=== PATIENT | female | born 1995 | race Hispanic/Latino ===

== ENCOUNTER 2023-01-23 12:42 | Inpatient (IN) | payer OTHER ==
[~2023-01-23] VITALS: Ht 154.9 cm; Wt 83.9 kg
[2023-01-23 12:44] VITALS: O2SAT 97
[2023-01-23] MEDS ORDERED: EPHEDRINE SULFATE 50 MG/ML AMPULE IVP PRN (13:30)
[2023-01-23] MEDS ORDERED: NALOXONE HCL 0.4 MG/1 ML ML IV PRN (13:30)
[2023-01-23] MEDS ORDERED: LACTATED RINGERS 500 ML 500 ML IV PRN (13:30)
[2023-01-23 13:38] LABS: APPEARANCE,URINE CLOUDY (CLEAR); BILIRUBIN,URINE NEGATIVE (NEGATIVE); COLOR,URINE YELLOW (YELLOW); GLUCOSE, URINE (UA) NEGATIVE (NEGATIVE); KETONES,URINE 5 mg/dL (NEGATIVE); LEUKOCYTE ESTERASE ,URINE 250 Leu/uL (NEGATIVE); NITRATE,URINE NEGATIVE (NEGATIVE); OCCULT BLOOD,URINE LARGE (NEGATIVE); PROTEIN,URINE 30 mg/dL (NEGATIVE); UROBILINOGEN,URINE 0.2 mg/dL (0.2-1.0)
[2023-01-23 13:43] LABS: ADD UA MICROSCOPIC YES
[2023-01-23 14:10] LABS: HEMATOCRIT 33.2 % (36-48); MEAN CORPUSCULAR HEMOGLOBIN 27.9 pg (27.0-33.0); MEAN CORPUSCULAR HGB CONC 33.1 g/dL (32.0-36.0); MEAN CORPUSCULAR VOLUME 84.3 fL (79-99); RED BLOOD CELL COUNT(AUTO) 3.94 MIL/uL (4.00-5.50); RED CELL DISTRIBUTION WIDTH 14.6 % (11.0-15.5); WHITE BLOOD COUNT (AUTO) 10.9 K/uL (4.8-10.8)
[2023-01-23] MEDS: OXYTOCIN-LR 30 UNITS/500ML 500 ML IV SCH (14:28)
[2023-01-23 14:38] LABS: BACTERIA,URINE FEW /HPF (None Seen); MUCUS,URINE MOD LPF (None Seen); SQUAMOUS EPITHELIAL CELL,UR MOD /HPF (0-2)
[2023-01-23] MEDS: LACTATED RINGERS 1000ML 1,000 ML IV PRN ×2 (15:12→19:37)
[2023-01-23 15:31] LABS: RAPID PLASMA REAGIN NONREACTIVE (NONREACTIVE)
[2023-01-24] MEDS: ROPIVACAINE 0.2% 100ML VIAL 100 ML EP SCH ×2 (01:30→07:22)
[2023-01-24] MEDS: LACTATED RINGERS 1000ML 1,000 ML IV PRN ×2 (01:30→11:11)
[2023-01-24] MEDS: OXYTOCIN-LR 30 UNITS/500ML 500 ML IV SCH (10:47)
[2023-01-24] MEDS ORDERED: CALDOLOR 800MG+NS 250ML 250 ML IV ONE (12:18)
[2023-01-24] MEDS ORDERED: CEFAZOLIN SODIUM 2 GM VIAL ONE (12:18)
[2023-01-24] MEDS ORDERED: DEXAMETHASONE SOD PHOSPHATE 10MG/ML 1ML VIAL ONE (12:21)
[2023-01-24] MEDS ORDERED: OXYTOCIN 10 USP UNITS/ML ONE (12:22)
[2023-01-24] MEDS ORDERED: FENTANYL CITRATE PF 50 MCG/1 ML 2ML VIAL ONE (12:22)
[2023-01-24] MEDS ORDERED: MORPHINE PF 100MG/10ML AMP IV ONE (12:22)
[2023-01-24] MEDS ORDERED: ONDANSETRON 4MG INJ ONE (12:22)
[2023-01-24] MEDS ORDERED: LIDOCAINE 2%-EPI 1:200,000 20 ML VIAL IJ ONE (12:23)
[2023-01-24] MEDS ORDERED: CEFAZOLIN SODIUM 2 GM VIAL IVPB PRN (12:30)
[2023-01-24] MEDS ORDERED: OXYTOCIN-LR 30 UNITS/500ML 500 ML IV PRN (13:30)
[2023-01-24] MEDS ORDERED: DEXTROSE 5 %-0.45 % NACL 1,000 ML IV PRN (13:30)
[2023-01-24] MEDS ORDERED: PROMETHAZINE HCL 25 MG/ML 1ML AMPULE IM PRN (13:30)
[2023-01-24] MEDS ORDERED: MEPERIDINE-PF 75 MG/ML SYG IM PRN (13:30)
[2023-01-24] MEDS ORDERED: 0.9%NACL 10ML VIAL IVP PRN (13:30)
[2023-01-24 15:58] VITALS: BP 129/62; PULSE 80; RESP 16
[2023-01-24 20:06] VITALS: BP 118/73; PULSE 87; RESP 18
[2023-01-24] MEDS: CEFAZOLIN SODIUM 2 GM VIAL IVPB SCH (20:24)
[2023-01-24 23:31] VITALS: BP 126/73; PULSE 97; RESP 18
[2023-01-25 03:46] VITALS: BP 115/77; PULSE 87; RESP 18
[2023-01-25] MEDS: CEFAZOLIN SODIUM 2 GM VIAL IVPB SCH (04:15)
[2023-01-25] MEDS ORDERED: IBUPROFEN 600 MG TABLET PO PRN (05:30)
[2023-01-25] MEDS ORDERED: LANOLIN 30GM OINTMENT TP PRN (05:30)
[2023-01-25] MEDS ORDERED: HYDROCODONE/ACETAMINOPHEN 5/325 MG TAB PO PRN (05:30)
[2023-01-25] MEDS ORDERED: ACETAMINOPHEN 500 MG TABLET PO PRN (05:30)
[2023-01-25] MEDS ORDERED: DIPHENHYDRAMINE HCL 25 MG CAPSULE PO PRN (05:30)
[2023-01-25] MEDS ORDERED: BISACODYL 10 MG SUPP.RECT RC PRN (05:30)
[2023-01-25] MEDS ORDERED: ACETAMINOPHEN WITH CODEINE 1 TAB TAB PO PRN (05:30)
[2023-01-25] MEDS ORDERED: SIMETHICONE 80 MG TAB.CHEW PO PRN (05:30)
[2023-01-25 06:19] LABS: HEMATOCRIT 26.3 % (36-48); MEAN CORPUSCULAR HEMOGLOBIN 28.3 pg (27.0-33.0); MEAN CORPUSCULAR HGB CONC 33.1 g/dL (32.0-36.0); MEAN CORPUSCULAR VOLUME 85.7 fL (79-99); RED BLOOD CELL COUNT(AUTO) 3.07 MIL/uL (4.00-5.50); RED CELL DISTRIBUTION WIDTH 14.6 % (11.0-15.5); WHITE BLOOD COUNT (AUTO) 14.8 K/uL (4.8-10.8)
[2023-01-25 07:15] VITALS: BP 120/77; PULSE 95; RESP 16
[2023-01-25] MEDS ORDERED: DOCUSATE SODIUM 100 MG CAP PO SCH (09:00)
[2023-01-25 11:43] VITALS: BP 115/74; PULSE 97; RESP 16
[2023-01-25 15:48] VITALS: BP 134/75; PULSE 110; RESP 16
== END 2023-01-25 16:40 | disposition home or self-care (01) | DRG 788 ==
LOC: EDH 12:42 → LDH 12:51 → OBSVTOIN 12:51 → WSH 01-24 15:54
PROVIDERS: ADMIT Obstetrics & Gynecology; ATTEND Obstetrics & Gynecology
PROC: 10D00Z1 Extraction of Products of Conception, Low, Open Approach (ICD-10-PCS; principal; 2023-01-24 12:23)
DX: O77.9 Labor and delivery complicated by fetal stress, unspecified (principal); Z37.0 Single live birth; Z3A.39 39 weeks gestation of pregnancy
CPT/HCPCS: 36415; 59510; 81001; 83033; 85027; 86592; 86701; 86850; 86900; 86901; 87088; 87340; 87390; A4314; A4344; G0378; J1100; J1741; J2175; J2274; J2405; J2550; J2590; J2791; J2795; J3010; J3490; J7120; A4248; A4649; J0690; L0625